=== PATIENT | female | born 1980 | race American Indian/Alaskan Native ===

== ENCOUNTER 2017-12-23 14:05 | Emergency (ER) | payer MEDICAID ==
[2017-12-23 14:17] VITALS: BP 132/89; PULSE 86; RESP 16; TEMP 98.9; O2SAT 100
--- NOTE | 2017-12-23 15:56 | C.PDOC ---
History Of Present Illness 37-year-old female, presents to the emergency department with complaints of cough, congestion headache and pain in throat for the past several days. Pt states she has been using OTC meds with minimal relief. Denies any nausea/ vomiting, fever or chills. No other complaints at this time. Time Seen by Provider: 12/23/17 14:25 Chief Complaint (Nursing): Cough, Cold, Congestion History Per: Patient History/Exam Limitations: no limitations Past Medical History Reviewed: Historical Data, Nursing Documentation, Vital Signs Vital Signs: Last Vital Signs Temp 98.9 F 12/23/17 14:11 Pulse 86 12/23/17 14:11 Resp 16 12/23/17 14:11 BP 132/89 12/23/17 14:11 Pulse Ox 100 12/23/17 20:38 - Medical History PMH: Rheumatoid Arthritis Family History: States: No Known Family Hx - Social History Hx Alcohol Use: No Hx Substance Use: No Review Of Systems Constitutional: Negative for: Fever, Chills ENT: Positive for: Nose Congestion, Throat Pain Cardiovascular: Negative for: Chest Pain, Palpitations Respiratory: Positive for: Cough, Sputum. Negative for: Shortness of Breath Gastrointestinal: Negative for: Nausea, Vomiting, Abdominal Pain Musculoskeletal: Negative for: Back Pain Skin: Negative for: Rash Neurological: Positive for: Headache. Negative for: Weakness, Dizziness Physical Exam - Physical Exam Appears: Non-toxic, No Acute Distress Skin: Normal Color, Warm, Dry, No Rash Head: Atraumatic, Normacephalic Eye(s): bilateral: Normal Inspection Ear(s): Bilateral: Normal Nose: Normal Oral Mucosa: Moist Lips: Normal Appearing Throat: No Erythema, No Exudate Neck: Normal ROM Chest: Symmetrical Cardiovascular: Rhythm Regular, No Murmur Respiratory: No Accessory Muscle Use, No Rales, No Rhonchi, No Stridor, Wheezing (Bilateral EXPIRATORY ) Gastrointestinal/Abdominal: Soft, No Tenderness Back: Normal Inspection, No CVA Tenderness Extremity: Normal ROM, No Deformity, No Swelling Neurological/Psych: Oriented x3, Normal Speech, Normal Motor Gait: Steady ED Course And Treatment O2 Sat by Pulse Oximetry: 100 (RA) Pulse Ox Interpretation: Normal Medical Decision Making Medical Decision Making: Patient reports improvement of symptoms on re-exam. Lungs are CTA, heart is RRR. The patient is ambulatory in the ED with steady gait. Disposition - Disposition Referrals: [facility] [Outside] Disposition: HOME/ ROUTINE Disposition Time: 15:52 Condition: GOOD Additional Instructions: Follow up with the medical doctor within 1-2 days. Return if worsened. Prescriptions: Loratadine [Claritin] 10 mg PO DAILY #10 tab predniSONE [Prednisone] 20 mg PO BID #10 tab Instructions: Acute Bronchitis Forms: [facility] ([employer]), Work Excuse - Clinical Impression Clinical Impression: Bronchitis - Scribe Statement The provider has reviewed the documentation as recorded by the Scribe (Yancy Oconnor) All medical record entries made by the Scribe were at my direction and personally dictated by me. I have reviewed the chart and agree that the record accurately reflects my personal performance of the history, physical exam, medical decision making, and the department course for this patient. I have also personally directed, reviewed, and agree with the discharge instructions and disposition.
== END 2017-12-23 16:07 | disposition home or self-care (01) ==
LOC: C.ER 14:05
DX: J40 Bronchitis, not specified as acute or chronic (principal)